=== PATIENT | female | born 1990 | race Caucasian/White ===

== ENCOUNTER 2023-06-02 15:11 | Inpatient (IN) | payer OTHER ==
[~2023-06-02] VITALS: Ht 162.6 cm; Wt 81.7 kg
[2023-06-02 16:14] LABS: BASOPHILS ABSOLUTE AUTO 0.02 K/mm3 (0.00-0.23); BASOPHILS PERCENT AUTO 0 % (0-2); EOSINOPHILS PERCENT AUTO 0 % (0-6); Hematocrit 40.8 % (33.0-51.0); Hemoglobin 13.9 g/dL (11.5-16.0); IMMATURE GRAN ABSOLUTE AUTO 0.06 K/mm3 (0.00-0.10); IMMATURE GRAN PERCENT AUTO 1 % (0-1); LYMPHOCYTES ABSOLUTE AUTO 0.54 K/mm3 (0.84-5.20); LYMPHOCYTES PERCENT AUTO 6 % (21-46); MONOCYTES ABSOLUTE AUTO 0.47 K/mm3 (0.16-1.47); MONOCYTES PERCENT AUTO 5 % (4-13); Mean Corpuscular HGB 28.3 pg (26.0-34.0); Mean Corpuscular HGB Conc 34.1 g/dL (31.5-36.5); Mean Corpuscular Volume 83 fL (80-100); Mean Platelet Volume 8.5 fL (9.1-12.4); NEUTROPHILS ABSOLUTE AUTO 7.59 K/mm3 (1.96-9.15); NEUTROPHILS PERCENT AUTO 88 % (41-73); Platelet Count 167 K/mm3 (150-400); RDW Coefficient Variation 14.2 % (11.7-14.2); RDW Standard Deviation 43.2 fL (35.1-46.3); Red Blood Cell Count 4.91 M/mm3 (3.80-5.20); White Blood Cell Count 8.68 K/mm3 (4.00-11.30)
[2023-06-02 16:15] LABS: Source, Urine Clean Catch
[2023-06-02 16:38] LABS: Appearance, Urine Hazy (Clear); Bilirubin, Urine Neg (Neg); Blood, Urine 5+ (Neg); Color, Urine Yellow (P-Yellow); Glucose Qualitative, Urine Neg (Neg); Ketones, Urine 4+ (Neg); Leukocyte Esterase, Urine 1+ (Neg); Nitrite, Urine Neg (Neg); Protein, Urine 3+ (Neg); Specific Gravity, Urine 1.025 (1.003-1.022); Urobilinogen, Urine 1+ (Normal)
[2023-06-02 16:45] LABS: Amorphous Light (0-Heavy); Bacteria Mod /hpf; Mucus Mod (0-Heavy); Squamous Epithelial Cells Mod /hpf (Few)
[2023-06-02 16:48] LABS: Albumin, Blood 2.7 g/dL (3.4-5.0); Albumin/Globulin Ratio 0.6 (0.8-1.8); Bilirubin, Total 0.6 mg/dL (0.1-1.0); Bun/Creatinine Ratio 18.5 (12.0-20.0); Calcium, Blood 8.8 mg/dL (8.5-10.1); Creatinine, Blood 0.49 mg/dL (0.40-1.00); Globulin, Blood 4.8 g/dL (2.2-4.0); Potassium, Blood 3.5 mmol/L (3.5-5.5); Total Protein, Blood 7.5 g/dL (6.4-8.2)
[2023-06-02] MEDS ORDERED: MetroNIDAZOLE 500 MG Tab PO ONE (19:00)
[2023-06-02] MEDS ORDERED: Lactated Ringer's 1,000 ML IV SCH (19:05)
[2023-06-02] MEDS ORDERED: Cephalexin Monohydrate 500 MG Cap PO SCH (20:00)
[2023-06-02] MEDS ORDERED: Cephalexin Monohydrate 250 MG/5 ML UD BTL PO SCH (21:00)
[2023-06-02] MEDS ORDERED: Acetaminophen 325 MG TABLET PO PRN (21:20)
[2023-06-02] MEDS ORDERED: OxyCODONE 5 mg/Acetamin 325 mg TABLET PO PRN (22:20)
[2023-06-02] MEDS ORDERED: Ondansetron HCl 2 MG / ML 2ML Vial IV PRN (22:20)
[2023-06-02] MEDS ORDERED: PRENATAL TABLE1 EAC9 PO (22:28)
[2023-06-03] VITALS (20 sets, daily range): BP systolic 96–120; BP diastolic 52–74
[2023-06-03] MEDS ORDERED: LR Oxytocin 20 Units 1,000 ML IV ONE (02:50)
[2023-06-03] MEDS ORDERED: LR Oxytocin 20 Units 1,000 ML IV SCH (06:10)
--- NOTE | 2023-06-03 09:34 | NUR ---
"Spiritual Care | Pt. Request Pt. had a miscarriage overnight. Pt. is awake in bed and welcomed my visit. Pts. lifeless baby girl is present with Pt. Pt. displays evidence of being emotionally guarded at first. Facilitated a life review and listened with interest and empathy. Pt. 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 Pt. verbalized details about a difficult year and that this had not been her first miscarriage. Pt. displays evidence of increased trust and shows this local tanker truck driver her unnamed little girl. Pt. welcomed prayer. Prayed for the Pt. Pt. verbalized gratitude for the spiritual care visit. This local tanker truck driver will remain available to the Pt."
[2023-06-03] MEDS ORDERED: Zolpidem Tartrate 10 MG Tab PO ONE (09:40)
[2023-06-03] MEDS ORDERED: Acetaminophen 325 MG TABLET PO PRN (22:00)
[2023-06-04 01:36] VITALS: BP 111/70
[2023-06-04 08:34] VITALS: BP 100/58
[2023-06-04 09:46] LABS: BASOPHILS ABSOLUTE AUTO 0.03 K/mm3 (0.00-0.23); BASOPHILS PERCENT AUTO 1 % (0-2); EOSINOPHILS PERCENT AUTO 2 % (0-6); Hematocrit 36.9 % (33.0-51.0); Hemoglobin 12.3 g/dL (11.5-16.0); IMMATURE GRAN ABSOLUTE AUTO 0.03 K/mm3 (0.00-0.10); IMMATURE GRAN PERCENT AUTO 1 % (0-1); LYMPHOCYTES ABSOLUTE AUTO 1.21 K/mm3 (0.84-5.20); LYMPHOCYTES PERCENT AUTO 21 % (21-46); MONOCYTES ABSOLUTE AUTO 0.52 K/mm3 (0.16-1.47); MONOCYTES PERCENT AUTO 9 % (4-13); Mean Corpuscular HGB 28.6 pg (26.0-34.0); Mean Corpuscular HGB Conc 33.3 g/dL (31.5-36.5); Mean Corpuscular Volume 86 fL (80-100); Mean Platelet Volume 9.5 fL (9.1-12.4); NEUTROPHILS ABSOLUTE AUTO 3.86 K/mm3 (1.96-9.15); NEUTROPHILS PERCENT AUTO 67 % (41-73); Platelet Count 173 K/mm3 (150-400); RDW Coefficient Variation 14.6 % (11.7-14.2); RDW Standard Deviation 45.6 fL (35.1-46.3); White Blood Cell Count 5.75 K/mm3 (4.00-11.30)
--- NOTE | 2023-06-04 09:46 | NUR ---
Pt.is awake in bed when she welcomes my visit. Pt. is pleasant, but displays evidence of exhaustion. Offer spiritual support by asking guided questions and providing some grief processing. Pt. displays evidence of increased trust, and even asks this java jsf developer how I am doing. Pt. verbalized concern about driving home to [place] this afternoon. Prayed with Pt. Pt. verbalized gratitude for the spiritual care visit. This java jsf developer provided the Pt. with a New Testament and also some coloring materials.
[2023-06-04] MEDS ORDERED: FLU VACC QS2023-24(6MOS UP)/PF 60 MCG/0.5 ML SYRINGE IM SCH (10:30)
[2023-06-04 11:39] VITALS: BP 116/72
[2023-06-04] MEDS ORDERED: IBUP800 (11:54)
[2023-06-04 15:35] VITALS: BP 101/72
--- NOTE | 2023-06-04 18:40 | NUR ---
DELIVERY NOTE- ON 06/03/23 AT 0230 PT CALLED RN TO RESTROOM BY PULLING BATHROOM ALARM. PT REPORTS HER WATER BROKE, NITRAZINE POSITIVE. WHILE RN HELPING PT CLEAN UP AND CHANGE HER PAD SUPERVISORY CLERK YUE NOTIFIED OF SROM, SHE WENT TO GET PRECIPT BASIN. AT 0237 WHILE STILL IN THE BATHROOM PT REPORTED TO THIS RN "I FEEL LIKE SOMETHING IS COMING OUT, LIKE ANOTHER BIG CLOT" PT PUSHED AND DELIVERED FETUS. THIS RN HELD FETUS FROM FALLING INTO THE TOILET UNITL THE PRECIPT BASIN AND CLAMPS/SCISSORS BROUGHT IN. ONCE CLAMPED THIS RN CUT UMBILICAL CORD AND WRAPPED FETUS IN A TOWEL THEN HANDED FETUS TO PATIENT. ONCE PATIENT WAS ABLE RN AMBULATED HER BACK TO BED, PLACENTA STILL UNDELIVERED. SUPERVISORY CLERK YUE NOTIFIED DR BLACKMON OF DELIVERY AROUND 0245, ORDERS TO ADMINISTER IV PITOCIN FOR 1 HOUR, IF PLACENTA STILL UNDELIVERED CALL AND NOTIFY HIM. PLACENTA DELIVERED AT 0305, APPROX 10 MINUTES AFTER STARTING PITOCIN. BLEEDING SIGNIFICANTLY DECREASED AFTER DELIVERY OF PLACENTA. ESTIMATED BLOOD LOSS OF 500ML WHILE IN BATHROOM (INTO HAT IN TOILET) QBL FROM TIME OF GETTING BACK INTO BED UNTIL PLACENTA DELIVERY 252ML. TAVIA BOGGS ON UNIT FOR DELIVERY OF ANOTHER PATIENT, OFFERED TO ASSESS PLACENTA FOR COMPLETENESS, PLACENTA APPEARS COMPLETE, SENT TO PATHOLOGY. QBL DURING 2HOUR RECOVERY 20ML.
[2023-06-04 19:18] VITALS: BP 117/77
[2023-06-04 22:03] VITALS: BP 123/87
== END 2023-06-04 22:20 | disposition home or self-care (01) | DRG 779 ==
LOC: ER 15:11 → BC 15:12
PROVIDERS: Advanced Practice Midwife; Student in an Organized Health Care Education/Training Program; ADMIT Obstetrics & Gynecology
DX: O03.9 Complete or unspecified spontaneous abortion without complication (principal)
CPT/HCPCS: 36415; 76801; 76817; 80053; 81001; 84702; 85025; 86850; 86900; 86901; 87086; 88307; 99285-25; A9270; J2590; J7120